=== PATIENT | female | born 1930 | race African-American/Black ===

== ENCOUNTER → 2017-04-15 | Outpatient (CLI) | payer MEDICARE, BC ==
--- NOTE | ~2017-04-15 | MR18 ---
[facility] A Service of [facility] RADIOLOGY TEXT RESULTS PATIENT: GERRY VALDES LOCATION: [facility] : [birth year] UNIT #: [id number] AGE: [address]: Markie Monroe II, MD SEX: F ORDER DR: [id number] [facility] [address] [place], [place] [address] [id number] O MR#: [id number] Acc #: [id number] NAME: GERRY VALDES : 1930 SEX: F STUDY DATE/TIME: 04/15/2017 13:24 UNIT: [facility] ROOM: STUDY DESCRIPTION: MR Brain Wo Contrast Attending Physician: Markie Monroe II., M.D. Referring Physician: Markie Monroe II., M.D. Ordering Physician: Markie Monroe II., M.D. Primary Care Physician: Tiesha Campos M.D. MRI CENTER REPORT This report is preliminary unless electronic signature is present. EXAM Brain MRI without contrast, 04/25/2017 PROCEDURE Routine unenhanced brain MRI COMPARISON Prior MRI 12/12/2016 CLINICAL HISTORY 2-3 year history of Alzheimer's type dementia. FINDINGS Redemonstrated moderately extensive chronic and symmetric appearing white matter change. There is overall cerebral atrophy with fairly conspicuous temporal lobe atrophy and parietal atrophy, with relative frontal lobe sparing. As previously reported, the pattern would certainly be consistent with Alzheimer's type dementia. The white matter changes appear stable and there is no evidence of restricted diffusion to suggest acute ischemia. Changes are seen throughout the hemispheric white matter symmetrically as well as in the basal ganglia and brainstem but unchanged since the prior study. Normal flow voids are still seen in the cerebral vessels. The extracranial structures are unremarkable. There is no evidence of acute intracranial hemorrhage. Bone marrow signal is normal. IMPRESSION Redemonstrated extensive chronic white matter changes, along with cerebral atrophy with a partial frontal lobe sparing and particular predilection for the temporal lobes and parietal regions. The findings as previously reported would certainly be consistent with the suggested diagnosis of Alzheimer's type dementia. There is no interval change since the prior study, evidence of acute ischemia, hemorrhage or mass or hydrocephalus or other new abnormality. [facility]. [facility] A Service of [facility] RADIOLOGY TEXT RESULTS PATIENT: GERRY VALDES LOCATION: [facility] : [birth year] UNIT #: [id number] AGE: [address]: Markie Monroe II, MD SEX: F ORDER DR: Dictated by... Vlad Nolasco M.D. THIS IS AN ELECTRONICALLY VERIFIED REPORT Vlad Nolasco M.D. at 04/17/2017 1:19 PM Syeda TD: 04/16/2017 12:41 JOB #: [id number] MRI CENTER REPORT Page 1 of 1 COPY
[2017-04-15 13:25] LABS: POC - CREATININE 1.6 mg/dL (0.44-1.03)
== END | disposition home or self-care (01) ==
LOC: CMRI 04-05 14:00
PROVIDERS: Psychiatry & Neurology Neurology
DX: F03.90 Unspecified dementia, unspecified severity, without behavioral disturbance, psychotic disturbance, mood disturbance, and anxiety (principal); G31.9 Degenerative disease of nervous system, unspecified
CPT/HCPCS: 70551; 82565